=== PATIENT | male | born 1965 | race Caucasian/White ===

== ENCOUNTER 2022-07-24 22:53 | Emergency (ER) | payer OTHER ==
[~2022-07-24 22:53] MED LIST: AMBIEN10 MG PO; GLUCOPHAGE XR500 MG PO; LANTUS **100 UNITS/ SC; LIPITOR40 MG PO; LISINOPRIL-HCT1 EAC1 PO; NORVASC5 MG PO; PRILOSEC20 MG PO
[2022-07-25 01:51] LABS: BASOPHIL 0.7 % (0-2); EOSINOPHIL 2.3 % (0-5); HCT 39.7 % (42.0-52.0); HGB 13.8 g/dl (13.2-18.0); LYMPHOCYTE 17.4 % (15-48); MCH 31.6 pg (25.0-31.0); MCHC 34.8 g/dL (32.0-36.0); MCV 90.8 fL (78.0-100.0); MONOCYTE 9.9 % (0-12); NEUTROPHIL 69.2 % (41-80); NRBC 0; PLT 271 K/uL (150-400); RBC 4.37 M/uL (4.70-6.00); RDW 13.2 % (11.5-14.0); WBC 7.4 K/uL (4.0-10.5)
[2022-07-25 02:02] LABS: ALKALINE PHOSHATASE 66 U/L (46-116); ALT 50 U/L (16-63); AST 20 U/L (15-37); BILIRUBIN - TOTAL 0.5 mg/dL (0.2-1.0); BUN 12 mg/dL (7-18); BUN/CREAT RATIO (CALC) 11.5 RATIO; CHLORIDE 100 mmol/L (98-107); CO2 (BICARBONATE) 25 mmol/L (21-32); CREATININE 1.04 mg/dL (0.67-1.17); GLOBULIN (CALCULATION) 3.6 g/dL; GLUCOSE 176 mg/dL (74-106); TOTAL PROTEIN 7.6 g/dL (6.4-8.2)
[2022-07-25 02:17] LABS: BILIRUBIN NEGATIVE (NEGATIVE); BLOOD NEGATIVE Ery/uL (NEGATIVE); CLARITY CLEAR (CLEAR); COLOR YELLOW (YELLOW); GLUCOSE (U) NORMAL (NORMAL); LEUKOCYTES NEGATIVE Leu/uL (NEGATIVE); NITRITE NEGATIVE (NEGATIVE); PROTEIN NEGATIVE (NEGATIVE); SPECIFIC GRAVITY 1.025 (1.001-1.030)
[2022-07-25 02:22] LABS: ECSTASY (MDMA) NEGATIVE (NEGATIVE); MARIJUANA (THC) POSITIVE (NEGATIVE); METHADONE NEGATIVE (NEGATIVE)
[2022-07-25 02:23] LABS: AMPHETAMINES POSITIVE (NEGATIVE); BARBITURATES NEGATIVE (NEGATIVE); OPIATES POSITIVE (NEGATIVE); OXYCODONE NEGATIVE (NEGATIVE)
[2022-07-25 02:50] LABS: CORONAVIRUS 2019 SARS-COV-2 NEGATIVE (NEGATIVE); INFLUENZA A NAA NEGATIVE (NEGATIVE)
== END 2022-07-25 04:19 | disposition home or self-care (01) ==
LOC: FER 22:53
PROVIDERS: Emergency Medicine
DX: R41.0 Disorientation, unspecified (principal); Z20.822 Contact with and (suspected) exposure to COVID-19
CPT/HCPCS: 36415; 70450; 71045; 80053; 80305; 81003; 85025; G0480; U0002